=== PATIENT | male | born 1985 | race Caucasian/White ===

== ENCOUNTER 2020-12-07 06:21 | Day surgery (SDC) | payer MEDICAID, SELFPAY ==
--- NOTE | 2020-12-06 10:37 | EKG12_ITS ---
Test Reason : PRE OP Blood Pressure : / mmHG Vent. Rate : 072 BPM Atrial Rate : 072 BPM P-R Int : 108 ms QRS Dur : 090 ms QT Int : 392 ms P-R-T Axes : 068 077 041 degrees QTc Int : 429 ms Sinus rhythm with short NE Otherwise normal ECG Confirmed by STEVAN LIZAMA, MICKEY ([id number]), newspaper or periodical editor ZIA MONTIEL ([id number]) on 12/10/2020 11:21:56 AM Referred By: Gage Hester Confirmed By:REYNA CALLES MD
[2020-12-06 11:17] LABS: Hematocrit 46.3 % (40-54); Hemoglobin 15.2 g/dL (13.0-16.5); Mean Corp Hgb Conc 32.8 g/dL (32-36); Mean Corpuscular Volume 97.5 fL (80-94); Mean Platelet Vol. 9.3 fl (6.2-12.0); Platelet Count 322 K/mm3 (150-450); RBC Distribution Width CV 12.6 % (11.6-14.6); RBC Distribution Width SD 45.4 fl (35.1-43.9); Red Blood Count 4.75 M/mm3 (4.6-6.2); White Blood Count 6.8 K/mm3 (4.4-11.0)
[2020-12-07 06:45] VITALS: BP 118/72; PULSE 67; RESP 16; TEMP 36.9; O2SAT 99; BMI 22.8
--- NOTE | 2020-12-07 07:30 | SEP_PTH ---
PATIENT: KARLOS WYATT [place] [facility] [id number] AGE/SX: 35/M ROOM: RE12/07/[address]: Dr. Tanner Roldan MD : 1985 BED: DIS: 12/07/2020 SPEC #: [id number] RECD: 12/07/20 11:12 STATUS: NOREEN PORTERMary #: [id number] GRACE: 12/07/20 07:[address]: Tanner Roldan DEPT: SURGICAL PATHOLOGY RECD BY: Afshan Rodriguez ENTERED: 12/07/20 11:54 SP TYPE: SEPTUM OTHR DR: Dr. Gage Hester MD Tissues: Nasal septum, NOS Procedures: Decalcification bone/plaque Surgery Specimen Level III HEADER OPERATION: Septoplasty PRE-OP DIAGNOSIS: Deviated nasal septum TISSUE SUBMITTED: Septum and cartilage MICROSCOPIC DIAGNOSIS Nasal septum and cartilage, septoplasty: Fragments of hyaline cartilage and bone with focal reactive change (clinically deviated septum). AM:tashi 12/12/2020 MICROSCOPIC DESCRIPTION Slides are reviewed. GROSS DESCRIPTION Received in fixative is one container labeled with the patient's name and designated septal cartilage. The specimen consists of multiple irregular fragments of white-beatty bone and cartilage that in aggregate measure 5 x 3 x 0.2 cm. The specimen is totally submitted in two cassettes after decalcification. / AM:tashi 12/07/20 TC: CPT: 29865, 45008
[2020-12-07] MEDS: Oxymetazoline 0.05% 1 SPRAY SPRAY.BTL 15 SPRAY (08:00)
[2020-12-07] MEDS: Lidocaine 4% 50 ML Bottle (08:00)
[2020-12-07] MEDS: Bacitracin 500 UNITS/GM PACKET (08:00)
--- NOTE | 2020-12-07 08:33 | PCM.OPRPT ---
Problem List (1) DNS (deviated nasal septum) Status: Chronic Report of Operation Date of Procedure: 12/07/20 Pre-Operative Diagnosis: Deviated nasal septum with chronic nasal obstruction Post-Operative Diagnosis: Same Surgery/Procedure Performed:: Septoplasty Description of Surgical Findings:: Mauricio is a 35-year-old male with a history of nasal trauma and chronic nasal obstruction resulting from his marked nasal septal deviation. This failed to show any improvement despite appropriate medical therapy and surgical correction was offered for relief of this complaint. The risks of coronavirus exposure in this time period was discussed and he is agreeable accept this risk in exchange for treatment of his chronic condition. The risks, alternatives, potential complications, and benefits were discussed at length and any questions answered to the patient and/or caregiver's satisfaction. Witnessed informed consent was obtained in the office, and the patient and/or caregiver was agreeable to proceed. Procedure went as follows: The patient was identified in the preoperative holding and brought to the operating room, was placed under general anesthesia and intubated. When appropriate anesthesia was obtained, pledgets soaked in a 50-50 mixture of oxymetazoline and 4% topical lidocaine were placed to decongest the nasal mucosa. The nasal septum was then injected beginning on the left side with 1% lidocaine with 100,000 epinephrine for a total of 5 mL. The pledgets were then removed and the left nasal cavity examined. There was noted to be significant nasal septal deviation to the [right]. Using a 15 blade scalpel, a hemitransfixion incision was then made on the left side and using the Aamir elevator a subperichondrial/periosteal flap was elevated. The septum was then transected at the bony cartilaginous junction and a similar flap raised on the contralateral side. Using a Moreno forceps, the septum was then sharply transected superiorly and the deviated portions removed with a Galilea forceps. Very large inferior bony spur on the left was then removed with a chisel allowing for midline placement of the nasal septum. The hemitransfixion incision was then closed with interrupted 4-0 chromic gut suture followed by a 4-0 plain quilting suture to reapproximate the mucosal flaps. Corcoran splints coated with Bacitracin ointment were then applied to each nasal cavity and secured at the columella with a single 3-0 Prolene suture. An NG tube was then placed to decompress the stomach and the patient returned to anesthesia, revived and extubated having tolerated the procedure well. Type of Anesthesia:: General Anesthesiologist: Nikolai Kc Special Medications: none Specimen's removed: nasal septal contents Drains: none Estimated Blood Loss (mL): 25 mL Fluids Replaced: 1000 mL Grafts/Implants Used: Dole splints - Complications none - Admit VTE Documentation VTE Present on Admission: No VTE Mechan Device Prophylaxis: None VTE Pharm Prophylaxis ordered?: No
--- NOTE | 2020-12-07 08:38 | DCINST_ITS ---
- Discharge Diagnoses Current Active Problems: Current Active and Chronic Problems DNS (deviated nasal septum) (Chronic) You will use the following diet at home:: Regular Discharge Activity: Return to Normal Activity, May not drive while taking narcotic pain medications. Call your doctor if your incision/area has: Sudden Increased Bleeding, Foul Smelling Discharge Call your doctor if you observe: Fever of 101 or Higher, Uncontrolled pain Allergies/Adverse Reactions: Allergies No Known Allergies Allergy (Verified 11/30/20 10:50) Medications to take at Discharge Dextroamphetamine/Amphetamine [Adderall Xr 25 mg Capsule] 25 mg PO BID 11/30/20 Primary Care Physician: Gage Hester MD [Primary Care Provider] - Test Results: Test results from this visit will be discussed in further detail at your follow- up appointment, if applicable. Please Follow Up With: Tanner Roldan MD When: 2 weeks
[2020-12-07 08:45] VITALS: BP 118/72; BP 132/91; PULSE 76; RESP 16; TEMP 36.4; O2SAT 96
[2020-12-07 08:53] VITALS: BP 118/72; BP 141/92; PULSE 67; RESP 16; O2SAT 100
[2020-12-07 08:55] VITALS: BP 118/72; BP 140/98; PULSE 74; RESP 16; O2SAT 100
[2020-12-07 09:00] VITALS: BP 118/72; BP 137/99; PULSE 64; RESP 16; TEMP 36.8; O2SAT 99
[2020-12-07] MEDS: HYDROcodone Bitartrate/Apap 5/325 Tablet PO (09:35)
[2020-12-07 10:00] VITALS: BP 118/72; BP 136/95; PULSE 73; RESP 16; TEMP 36.3; O2SAT 99
== END 2020-12-07 10:14 | disposition home or self-care (01) ==
LOC: SDC 06:22 → AC 06:22
PROVIDERS: Anesthesiology; PCP Family Medicine; Referring Provider Family Medicine; Visit Provider Otolaryngology
PROC: (CPT 30520; principal; 2020-12-07 07:15)
DX: J34.2 Deviated nasal septum (principal); Z87.891 Personal history of nicotine dependence
CPT/HCPCS: 00160; 30520; 36415; 85027; 87426; 88304; 88311; 93005; C9803; J7120; J2405